=== PATIENT | male | born 1945 ===

== ENCOUNTER 2018-11-06 07:22 | Day surgery (SDC) | payer OTHER ==
[2018-11-06] MEDS ORDERED: Iodixanol 320 MG/ML 100 ML BOTTLE IV ONE (12:06)
[2018-11-06] MEDS ORDERED: Midazolam 2 MG/2 ML VIAL ONE (12:19)
[2018-11-06 12:34] VITALS: BMI 29.5
--- NOTE | 2018-11-06 23:42 | CARDCATH ---
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 The patient tested positive only for opiates. Troponin was borderline elevated. There were no acute findings on CT scan done twice. Cardiac catheterization was recommended. The procedure and its risks were fully explained to the patient who understood and agreed for the procedure. DESCRIPTION OF PROCEDURE: After local infiltration with 1% lidocaine, a 6-[place] sheath was placed to the right femoral artery. Left and right coronary angiography was performed with JL5 and JR4 diagnostic catheters. Left ventriculogram and aortogram were performed with 6-[place] pigtail catheter. The patient tolerated the procedure well without any complications. ANGIOGRAPHIC FINDINGS: Selective injection of the left coronary artery: The left main to be a normal vessel. Left main bifurcated into a medium-sized circumflex artery and a small caliber LAD. LAD had 50% proximal narrowing, followed by 50% narrowing in the middle segment. LAD continued as mid and distal segment and a small caliber vessel. Selective injection of the right coronary artery revealed medium-sized dominant vessel that was angiographically unremarkable. Left ventriculogram performed in the [place] projection revealed normal wall motion. Overall ejection fraction was estimated at 55%. Aortography performed in the [place] projection revealed mild dilated aortic root and aortic arch. There was no aortic insufficiency or dissection. CONCLUSION: 1. Insufficient proximal and mid left anterior descending disease. 2. Normal left ventricular systolic function. RECOMMENDATIONS: Continue current medical management, including Eliquis for chronic atrial fibrillation. Robbin Sheriff MD cc: Andrea Hansen MD
[2018-11-09 11:23] VITALS: RESP 18; O2SAT 100
== END 2018-11-06 17:37 | disposition short-term general hospital (02) ==
LOC: C.CATHLAB 07:22
PROVIDERS: ATTEND Specialist
DX: I48.2 Chronic atrial fibrillation (principal); Z95.0 Presence of cardiac pacemaker
CPT/HCPCS: 82948; 93458; 99152; 99153; C1769; C1887; C1893; J1644; J2250; J3010; Q9967